=== PATIENT | female | born 1975 | race Two or more races ===

== ENCOUNTER 2016-10-21 02:51 | Emergency (ER) | payer MEDICAID ==
[~2016-10-21] VITALS: Ht 170.2 cm; Wt 64.0 kg
[~2016-10-21 02:51] MED LIST: HYDR-3498 PO; MAG-19 PO; NITR-58 PO; OMEP20CA9 PO
[2016-10-21 02:53] VITALS: Ht 170.2 cm; Wt 64.0 kg
[2016-10-21] MEDS ORDERED: LIDOCAINE/MYLANTA 40 ML BTL PO STA (03:03)
[2016-10-21] MEDS ORDERED: morphine 4 MG/ML VIAL IV STA (03:03)
[2016-10-21] MEDS ORDERED: ONDANSETRON 4 MG INJ IV STA (03:03)
[2016-10-21] MEDS ORDERED: FAMOTIDINE 20 MG INJ IV STA (03:03)
[2016-10-21] MEDS ORDERED: SOD CHLORIDE 0.9% 500 ML IV STA (03:03)
--- NOTE | 2016-10-21 03:46 | RADRPT ---
PROCEDURE: XR Chest. CLINICAL INDICATION: Shortness of breath. TECHNIQUE: AP Portable chest. COMPARISON: No pertinent prior examinations were submitted for comparison. FINDINGS: The cardiomediastinal silhouette is normal. The lungs are clear. The osseous structures are unrema rkable. IMPRESSION: No acute findings. RPTAT: HIKT .Jc Acevedo MD, MD Date Time Electronically viewed and signed by .Jc Acevedo MD, MD on 10/21/2016 03:46 .T/
[2016-10-21 04:24] LABS: ADD SCAN DIFF NO
[2016-10-21 04:36] LABS: BASOPHILS % 0.7 % (0.0-2.0); EOSINOPHILS # 0.1 10^3/ul (0.0-0.5); EOSINOPHILS % 2.3 % (0.0-7.0); HEMATOCRIT 36.5 % (37.0-47.0); HEMOGLOBIN 11.7 g/dl (12.0-16.0); LYMPHOCYTES # 1.6 10^3/ul (0.8-2.9); LYMPHOCYTES % 26.5 % (15.0-51.0); MEAN CORPUSCULAR HEMOGLOBIN 29.8 pg (29.0-33.0); MEAN CORPUSCULAR HGB CONC 32.1 g/dl (32.0-37.0); MEAN CORPUSCULAR VOLUME 92.9 fl (82.0-101.0); MEAN PLATELET VOLUME 12.3 fl (7.4-10.4); MONOCYTE # 0.5 10^3/ul (0.3-0.9); MONOCYTES % 7.4 % (0.0-11.0); NEUTROPHIL # 3.8 10^3/ul (1.6-7.5); NEUTROPHILS % 62.9 % (39.0-77.0); PLATELET COUNT 181 10^3/UL (140-415); RED BLOOD COUNT 3.93 10^6/ul (4.20-5.40); RED CELL DISTRIBUTION WIDTH 12.6 % (11.5-14.5); WHITE BLOOD COUNT 6.1 10^3/ul (4.8-10.8)
[2016-10-21 04:38] LABS: ADD UMIC YES; URINE BILIRUBIN (Dip) NEGATIVE (NEGATIVE); URINE BLOOD (Dip) NEGATIVE (NEGATIVE); URINE COLOR LT. YELLOW (YELLOW); URINE GLUCOSE (Dip) NEGATIVE (NEGATIVE); URINE KETONES (Dip) NEGATIVE (NEGATIVE); URINE LEUKOCYTE ESTERASE (Dip) 2+ (NEGATIVE); URINE NITRITE (Dip) NEGATIVE (NEGATIVE); URINE TOTAL PROTEIN (Dip) NEGATIVE (NEGATIVE); URINE UROBILINOGEN (Dip) 0.2 E.U./dL (0.1-1.0)
[2016-10-21 04:39] LABS: ALBUMIN 3.8 g/dl (3.3-4.9); CHLORIDE 107 mmol/L (97-110); POTASSIUM 3.7 mmol/L (3.5-5.1); SODIUM 145 mmol/L (135-144)
[2016-10-21 04:41] LABS: CREATININE 0.68 mg/dl (0.44-1.00)
[2016-10-21 04:42] LABS: ALANINE AMINOTRANSFERASE 29 IU/L (13-69); ALBUMIN/GLOBULIN RATIO 1.31; ALKALINE PHOSPHATASE 63 IU/L (42-121); ANION GAP 15 (8-16); ASPARTATE AMINO TRANSFERASE 30 IU/L (15-46); BILIRUBIN,INDIRECT 0.1 mg/dl (0-1.1); BILIRUBIN,TOTAL 0.1 mg/dl (0.2-1.3); BLOOD UREA NITROGEN 16 mg/dl (7-20); CALCIUM 8.7 mg/dl (8.4-10.2); CARBON DIOXIDE 27 mmol/L (21-31); GLUCOSE 97 mg/dl (70-220); TOTAL PROTEIN 6.7 g/dl (6.1-8.1)
[2016-10-21 04:53] LABS: SQUAMOUS EPITHELIAL CELL,UR FEW; URINE RBCS NONE SEEN /HPF (0)
[2016-10-21 04:54] LABS: BACTERIA,URINE OCCASIONAL
[2016-10-21 04:55] LABS: TROPONIN-I < 0.012 ng/ml (0.00-0.12)
[2016-10-21 05:11] VITALS: BP 108/51; PULSE 64; RESP 16
--- NOTE | 2016-10-21 05:12 | ERD ---
ER Documentation Chief Complaint Date/Time DATE: 10/21/16 TIME: 05:11 Chief Complaint Upper abd pain and "heart pain" per pt HPI This is a 41 female with epigastric abdominal pain that radiates up her chest for the past 2-3 days. She did pain is burning in sensation. No fevers no chills. Pain is mild to moderate. Mild nausea. No vomiting. No diaphoresis. No shortness of breath. No other current complaints. ROS All systems reviewed and are negative except as per history of present illness. Medications Home Meds Active Scripts Omeprazole* (Prilosec*) 20 Mg Capsule.dr, 20 MG PO DAILY, #30 CAP Prov:DIAMOND VU [employer]ICER 03/19/15 Magaldrate/Simethicone* (Mylanta*) 355 Ml Susp, 30 ML PO QID Y for GASTROINTESTINAL UPSET, #1 BOTTLE Prov:DIAMOND VU NP 03/19/15 Nitrofurantoin Monohyd Macrocr* (Macrobid*) 100 Mg Capsr, 100 MG PO BID, #7 CAP Prov:DIAMOND VU [employer]IEF SAF[employer]Y OFFICER 03/19/15 Hydrocodone Bit-Acetaminophen* ([place]*) 5-325 Mg Tab, 1 TAB PO Q4H Y for SEVERE PAIN LEVEL 7-10, #30 TAB Prov:DIAMOND VU [employer]IEF SAF[employer] OFFICER 03/19/15 Allergies Allergies: Coded Allergies: No Known Drug Allergy (Verified Allergy, Mild, 03/18/15) PMhx/Soc Medical and Surgical Hx: pt denies Medical Hx, pt denies Surgical Hx History of Surgery: No Anesthesia Reaction: No Hx Neurological Disorder: No Hx Respiratory Disorders: No Hx Cardiac Disorders: No Hx Psychiatric Problems: No Hx Miscellaneous Medical Probl: No Hx Alcohol Use: No Hx Substance Use: No Hx Tobacco Use: No Smoking Status: Never smoker Physical Exam Vitals Vital Signs Date Time Temp Pulse Resp B/P Pulse Ox O2 Delivery O2 Flow Rate FiO2 10/21/16 02:53 98.9 71 16 123/60 99 Physical Exam Const: [] Head: Atraumatic Eyes: Normal Conjunctiva ENT: Normal External Ears, Nose and Mouth. Neck: Full range of motion..~ No meningismus. Resp: Clear to auscultation bilaterally Cardio: Regular rate and rhythm, no murmurs Abd: Soft, non tender, non distended. Normal bowel sounds Skin: No petechiae or rashes Back: No midline or flank tenderness Ext: No cyanosis, or edema Neur: Awake and alert Psych: Normal Mood and Affect Result Diagram: 10/21/16 0330 10/21/16 0330 Results 24 hrs Laboratory Tests Test 10/21/16 03:30 10/21/16 04:00 White Blood Count 6.110^3/ul Red Blood Count 3.9310^6/ul Hemoglobin 11.7g/dl Hematocrit 36.5% Mean Corpuscular Volume 92.9fl Mean Corpuscular Hemoglobin 29.8pg Mean Corpuscular Hemoglobin Concent 32.1g/dl Red Cell Distribution Width 12.6% Platelet Count 52538^3/UL Mean Platelet Volume 12.3fl Neutrophils % 62.9% Lymphocytes % 26.5% Monocytes % 7.4% Eosinophils % 2.3% Basophils % 0.7% Nucleated Red Blood Cells % 0.0/100WBC Neutrophils # 3.810^3/ul Lymphocytes # 1.610^3/ul Monocytes # 0.510^3/ul Eosinophils # 0.110^3/ul Basophils # 0.010^3/ul Nucleated Red Blood Cells # 0.010^3/ul Sodium Level 145mmol/L Potassium Level 3.7mmol/L Chloride Level 107mmol/L Carbon Dioxide Level 27mmol/L Anion Gap 15 Blood Urea Nitrogen 16mg/dl Creatinine 0.68mg/dl Glucose Level 97mg/dl Calcium Level 8.7mg/dl Total Bilirubin 0.1mg/dl Direct Bilirubin 0.00mg/dl Indirect Bilirubin 0.1mg/dl Aspartate Amino Transf (AST/SGOT) 30IU/L Alanine Aminotransferase (ALT/SGPT) 29IU/L Alkaline Phosphatase 63IU/L Troponin I < 0.012ng/ml Total Protein 6.7g/dl Albumin 3.8g/dl Globulin 2.90g/dl Albumin/Globulin Ratio 1.31 Lipase 277U/L Urine Color LT. YELLOW Urine Clarity SLIGHTLY CLOUDY Urine pH 7.0 Urine Specific [place] 1.015 Urine Ketones NEGATIVE Urine Nitrite NEGATIVE Urine Bilirubin NEGATIVE Urine Urobilinogen 0.2 E.U./dL Urine Leukocyte Esterase 2+ Urine Microscopic RBC NONE SEEN/HPF Urine Microscopic WBC 2-5/HPF Urine Squamous Epithelial Cells FEW Urine Amorphous Urates MANY Urine Bacteria OCCASIONAL Urine Hemoglobin NEGATIVE Urine Glucose NEGATIVE% Urine Total Protein NEGATIVE Current Medications Medications (Trade) Dose Ordered Sig/Chano Route PRN Reason Start Time Stop Time Status Last Admin Dose Admin Sodium Chloride (NS) 500 ml @ 500 mls/hr Q1H STAT IV 10/21/16 03:03 10/21/16 04:02 DC 10/21/16 03:46 Morphine Sulfate (morphine) 4 mg ONCE STAT IV 10/21/16 03:03 10/21/16 03:05 DC 10/21/16 03:45 Ondansetron HCl (Zofran Inj) 4 mg ONCE STAT IV 10/21/16 03:03 10/21/16 03:05 DC 10/21/16 03:45 Famotidine (Pepcid Iv) 20 mg ONCE STAT IV 10/21/16 03:03 10/21/16 03:05 DC 10/21/16 03:45 Miscellaneous Medication (Gi Cocktail (2)) 40 ml ONCE STAT PO 10/21/16 03:03 10/21/16 03:05 DC 10/21/16 03:44 Procedures/MDM EKG: Rate/Rhythm: [Normal Sinus Rhythm] QRS, ST, T-waves: [No changes consistent w/ acute ischemia] Impression: [No evidence of ischemia or arrhythmia] Chest X-ray 1V Interpreted by me: Soft Tissue: No acute abnormalities Bones: No acute abnormalities Mediastinum/Cardiac Silhouette/Lungs: [No acute abnormalities] Medical decision making: This very pleasant patient comes in essentially for gastritic-like symptoms. At this point clinically stable for outpatient management. Patient be discharged home. Departure Diagnosis: Primary Impression: Gastritis Gastritis type: unspecified gastritis Chronicity: unspecified Gastritis bleeding: without bleeding Qualified Code: K29.70 - Gastritis without bleeding, unspecified chronicity, unspecified gastritis type Condition: Stable RUBEN MCGRATHKarena Oct 21, 2016 05:12
[2016-10-21] MEDS ORDERED: SUCR1TAB56 PO (05:13)
== END 2016-10-21 05:40 | disposition home or self-care (01) ==
LOC: E/R 02:51
DX: K29.70 Gastritis, unspecified, without bleeding (principal); R11.0 Nausea
CPT/HCPCS: 36415; 71010; 80053; 81001; 83690; 84484; 85025; 93005; 96374; 96375; J2270; J2405; J7040; Z7502; Z7610; 81003

== ENCOUNTER 2017-03-06 03:45 | Emergency (ER) | payer MEDICAID ==
[~2017-03-06] VITALS: Ht 162.6 cm; Wt 62.0 kg
[~2017-03-06 03:45] MED LIST changes: +SUCR1TAB56 PO
[2017-03-06 03:49] VITALS: Ht 162.6 cm; Wt 62.0 kg
[2017-03-06] MEDS ORDERED: SOD CHLORIDE 0.9% 1,000 ML IV STA (04:31)
[2017-03-06] MEDS ORDERED: ONDANSETRON 4 MG INJ IV STA (04:31)
[2017-03-06] MEDS ORDERED: morphine 4 MG/ML VIAL IV STA (04:31)
[2017-03-06 04:54] LABS: ADD UMIC YES; BASOPHILS % 0.7 % (0.0-2.0); EOSINOPHILS # 0.2 10^3/ul (0.0-0.5); EOSINOPHILS % 2.7 % (0.0-7.0); HEMATOCRIT 34.1 % (37.0-47.0); HEMOGLOBIN 11.4 g/dl (12.0-16.0); LYMPHOCYTES # 1.5 10^3/ul (0.8-2.9); LYMPHOCYTES % 26.5 % (15.0-51.0); MEAN CORPUSCULAR HEMOGLOBIN 30.3 pg (29.0-33.0); MEAN CORPUSCULAR HGB CONC 33.4 g/dl (32.0-37.0); MEAN CORPUSCULAR VOLUME 90.7 fl (82.0-101.0); MEAN PLATELET VOLUME 12.2 fl (7.4-10.4); MONOCYTE # 0.4 10^3/ul (0.3-0.9); MONOCYTES % 7.9 % (0.0-11.0); NEUTROPHIL # 3.4 10^3/ul (1.6-7.5); PLATELET COUNT 153 10^3/UL (140-415); RED BLOOD COUNT 3.76 10^6/ul (4.20-5.40); RED CELL DISTRIBUTION WIDTH 12.6 % (11.5-14.5); UR ASCORBIC ACID NEGATIVE (NEGATIVE); UR BILIRUBIN (Dip) NEGATIVE (NEGATIVE); UR BLOOD (Dip) 3+ mg/dL (NEGATIVE); UR CLARITY CLEAR (CLEAR); UR COLOR COLORLESS (YELLOW); UR GLUCOSE (Dip) NEGATIVE (NEGATIVE); UR KETONES (Dip) NEGATIVE (NEGATIVE); UR LEUKOCYTE ESTERASE (Dip) TRACE Leu/ul (NEGATIVE); UR NITRITE (Dip) NEGATIVE (NEGATIVE); UR RBC 2 /HPF (0-5); UR SPECIFIC GRAVITY (Dip) 1.005 (1.003-1.030); UR TOTAL PROTEIN (Dip) NEGATIVE (NEGATIVE); UR UROBILINOGEN (Dip) NEGATIVE (NEGATIVE); WHITE BLOOD COUNT 5.5 10^3/ul (4.8-10.8)
[2017-03-06 05:10] LABS: ALBUMIN/GLOBULIN RATIO 1.29; CALCIUM 8.6 mg/dl (8.4-10.2); CREATININE 0.59 mg/dl (0.44-1.00); POTASSIUM 3.9 mmol/L (3.5-5.1); TOTAL PROTEIN 7.1 g/dl (6.1-8.1)
[2017-03-06] MEDS ORDERED: KETOROLAC 30 MG INJ IV ONE (05:46)
--- NOTE | 2017-03-06 05:57 | RADRPT ---
PROCEDURE: ULTRASOUND LIMITED ABDOMEN CLINICAL INDICATION: 42-year-old female with abdominal pain. TECHNIQUE: Multiple sonographic of the right upper quadrant of the abdomen were obtained. The imag es were reviewed on a PACS workstation. COMPARISON: Right upper quadrant ultrasound March 19, 2015. FINDINGS: The pancreas is not well visualized secondary to overlying bowel gas. The liver displays normal echogenicity. The liver measures 18.3 cm in length. No evidence of intrah epatic biliary ductal dilatation is seen. The portal and hepatic veins are unremarkable. The gallbladder is distended and contains shadowing mobile stones. The gallbladder wall is thickene d measuring 5.4 mm. There is questionable trace pericholecystic fluid. The common bile duct measures 5.4 mm and is not dilated. The right kidney displays normal echogenicity. The right kidney measures 10.8 cm in length. No calie ctasis or hydronephrosis is seen. No free fluid is seen. IMPRESSION: Cholelithiasis with thickened gallbladder wall and questionable trace pericholecystic fluid. .Daniel Wray MD, MD Date Time Electronically viewed and signed by .Daniel Wray MD, on 03/06/2017 05:57 .M/
[2017-03-06] MEDS ORDERED: HYDR-906 PO (06:08)
[2017-03-06] MEDS ORDERED: NAPR-688 PO (06:08)
[2017-03-06] MEDS ORDERED: ONDA4TAB14 PO (06:08)
--- NOTE | 2017-03-06 06:11 | RADRPT ---
PROCEDURE: CT ABDOMEN/PELVIS WITHOUT CONTRAST CLINICAL INDICATION: 42-year-old female with abdominal pain. TECHNIQUE: The study was performed utilizing a [employer] VCT 64-slice CT scanner. Direct axia l sections were obtained through the abdomen and pelvis without the use of intravenous contrast mate rial. Sagittal and coronal reformations were obtained. One or more of the following dose reduction t echniques were utilized: automated exposure control, adjustment of the mA and/or kV according to pat ient's size or use of iterative reconstruction technique. The images [facility] CTD/vol = 6.6 mGy; Total Exam DLP = 362 point a mGy-cm. COMPARISON: Right upper quadrant ultrasound March 06, 2017. FINDINGS: The lung bases are unremarkable. There is no evidence for significant pleural effusion. The liver has a normal size and contour without focal areas of abnormal density. No intrahepatic nor extrahepa tic biliary ductal dilatation is seen. The gallbladder contains multiple gallstones with a thickened gallbladder wall measuring up to 5.3 mm with trace pericholecystic fluid. The pancreas is without a reas of abnormal attenuation. The spleen is identified and has a normal size without abnormal densi ty. The adrenal glands are unremarkable. The kidneys are without abnormal density. No hydroureterone phrosis nor nephroureterolithiasis is evident. The urinary bladder contains urine. There is retained stool identified within the ascending and transverse colon without evidence for gross bowel obstruc tion. The appendix is visualized and is without abnormal thickening or surrounding inflammatory christofer ction. The uterus is anteflexed. There is no significant free fluid. The aortoiliac vessels are without aneurysmal dilatation. The osseous structures are intact. IMPRESSION: 1. Cholelithiasis with thickened gallbladder wall and trace pericholecystic fluid. 2. No CT evidence for obstructive uropathy or renal calculi. 3. Retained stool within the proximal colon without obstruction. 4. No CT evidence for appendicitis. .Daniel Wray MD, MD Date Time Electronically viewed and signed by .Daniel Wray MD, MD on 03/06/2017 06:11 .M/
--- NOTE | 2017-03-06 06:12 | ERD ---
ER Documentation Chief Complaint Date/Time DATE: 03/06/17 TIME: 06:09 Chief Complaint RUQ abd pain x 2 days HPI This 42-year-old female comes in for intermittent right upper quadrant pain for 2 days. She actually indicates the pain is being in her lower right chest that radiates to her back. Denies any fevers or chills. Does have known gallstones. Denies any shortness of breath but states that the pain is sometimes worse when she takes a deep breath. ROS All systems reviewed and are negative except as per history of present illness. Medications Home Meds Active Scripts Ondansetron (Ondansetron Odt) 4 Mg Tab.rapdis, 4 MG PO Q6H Y for NAUSEA AND/OR VOMITING, #10 TAB Prov:PAT NOONAN DO 03/06/17 Naproxen* (Naproxen*) 500 Mg Tablet, 500 MG PO BID Y for PAIN, #20 TAB Prov:PAT NOONAN DO 03/06/17 Hydrocodone/Acetaminophen ([place] 5-325 Tablet) 1 Each Tablet, 1 EACH PO Q6, #10 TAB Prov:PAT NOONAN DO 03/06/17 Discontinued Scripts Sucralfate* (Carafate*) 1 Gm Tab, 1 GM PO QID, #30 TAB Prov:RUBEN MCGRATH 10/21/16 Omeprazole* (Prilosec*) 20 Mg Capsule.dr, 20 MG PO DAILY, #30 CAP Prov:DIAMOND VU NP 03/19/15 Magaldrate/Simethicone* (Mylanta*) 355 Ml Susp, 30 ML PO QID Y for GASTROINTESTINAL UPSET, #1 BOTTLE Prov:DIAMOND VU NP 03/19/15 Nitrofurantoin Monohyd Macrocr* (Macrobid*) 100 Mg Capsr, 100 MG PO BID, #7 CAP Prov:DIAMOND VU NP 03/19/15 Hydrocodone Bit-Acetaminophen* ([place]*) 5-325 Mg Tab, 1 TAB PO Q4H Y for SEVERE PAIN LEVEL 7-10, #30 TAB Prov:DIAMOND VU NP 03/19/15 Allergies Allergies: Coded Allergies: No Known Drug Allergy (Verified Allergy, Mild, 03/18/15) PMhx/Soc Medical and Surgical Hx: pt denies Medical Hx, pt denies Surgical Hx History of Surgery: No Anesthesia Reaction: No Hx Neurological Disorder: No Hx Respiratory Disorders: No Hx Cardiac Disorders: No Hx Psychiatric Problems: No Hx Miscellaneous Medical Probl: No Hx Alcohol Use: No Hx Substance Use: No Hx Tobacco Use: No Smoking Status: Never smoker Physical Exam Vitals Vital Signs Date Time Temp Pulse Resp B/P Pulse Ox O2 Delivery O2 Flow Rate FiO2 03/06/17 04:16 98.3 67 20 114/58 100 Room Air 03/06/17 03:49 98.3 69 20 115/68 99 Physical Exam Const: [] Mild distress Head: Atraumatic Eyes: Normal Conjunctiva ENT: Normal External Ears, Nose and Mouth. Neck: Full range of motion..~ No meningismus. Resp: Clear to auscultation bilaterally Cardio: Regular rate and rhythm, no murmurs Abd: Soft, mild tenderness to palpation with deep palpation right upper quadrant on inspiration, no guarding or rebound non distended. Normal bowel sounds Skin: No petechiae or rashes Back: No midline or flank tenderness Ext: No cyanosis, or edema Neur: Awake and alert and oriented 3, no focal deficit Psych: Normal Mood and Affect Result Diagram: 03/06/1742903/06/17 043 Results 24 hrs Laboratory Tests Test 03/06/17 04:30 White Blood Count 5.510^3/ul Red Blood Count 3.7610^6/ul Hemoglobin 11.4g/dl Hematocrit 34.1% Mean Corpuscular Volume 90.7fl Mean Corpuscular Hemoglobin 30.3pg Mean Corpuscular Hemoglobin Concent 33.4g/dl Red Cell Distribution Width 12.6% Platelet Count 28044^3/UL Mean Platelet Volume 12.2fl Neutrophils % 62.0% Lymphocytes % 26.5% Monocytes % 7.9% Eosinophils % 2.7% Basophils % 0.7% Nucleated Red Blood Cells % 0.0/100WBC Neutrophils # 3.410^3/ul Lymphocytes # 1.510^3/ul Monocytes # 0.410^3/ul Eosinophils # 0.210^3/ul Basophils # 0.010^3/ul Nucleated Red Blood Cells # 0.010^3/ul Urine Color COLORLESS Urine Clarity CLEAR Urine pH 7.0 Urine Specific [place] 1.005 Urine Ketones NEGATIVEmg/dL Urine Nitrite NEGATIVEmg/dL Urine Bilirubin NEGATIVEmg/dL Urine Urobilinogen NEGATIVEmg/dL Urine Leukocyte Esterase TRACELeu/ul Urine Microscopic RBC 2/HPF Urine Microscopic WBC 3/HPF Urine Hemoglobin 3+mg/dL Urine Glucose NEGATIVEmg/dL Urine Total Protein NEGATIVEmg/dl Sodium Level 145mmol/L Potassium Level 3.9mmol/L Chloride Level 106mmol/L Carbon Dioxide Level 26mmol/L Anion Gap 17 Blood Urea Nitrogen 13mg/dl Creatinine 0.59mg/dl Glucose Level 92mg/dl Calcium Level 8.6mg/dl Total Bilirubin 0.0mg/dl Direct Bilirubin 0.00mg/dl Indirect Bilirubin 0.0mg/dl Aspartate Amino Transf (AST/SGOT) 20IU/L Alanine Aminotransferase (ALT/SGPT) 29IU/L Alkaline Phosphatase 58IU/L Troponin I < 0.012ng/ml Total Protein 7.1g/dl Albumin 4.0g/dl Globulin 3.10g/dl Albumin/Globulin Ratio 1.29 Lipase 169U/L Current Medications Medications (Trade) Dose Ordered Sig/[place] Route PRN Reason Start Time Stop Time Status Last Admin Dose Admin Sodium Chloride (NS) 1,000 ml @ 1,000 mls/hr Q1H STAT IV 03/06/17 04:31 03/06/17 05:30 DC 03/06/17 04:49 Morphine Sulfate (morphine) 4 mg ONCE STAT IV 03/06/17 04:31 03/06/17 04:32 DC Ondansetron HCl (Zofran Inj) 4 mg ONCE STAT IV 03/06/17 04:31 03/06/17 04:32 DC 03/06/17 04:49 Ketorolac Tromethamine (Toradol) 30 mg ONCE ONCE IV 03/06/17 05:46 03/06/17 05:47 DC Procedures/MDM Biliary colic. Patient also indicated the pain was actually in her chest cavity area however I believe this is just referred pain from her gallbladder. EKG was performed which was negative for any ischemia. Troponin is also negative after 2 days with the pain. Does have thickened gallbladder wall on CAT scan however patient's condition was so mild that she declined pain medication both morphine and Toradol. She was given Zofran and normal saline. She is now a stay in the hospital. She has no evidence of dilated duct or elevated bilirubin or increased liver function test. I am going to discharge her with instructions to follow-up with primary care doctor and obtain a surgical consult as well as strict return precautions to the ER. Gallbladder ultrasound interpretation: Multiple gallstones with thickened, no dilated bile duct. I do not see pericystic colic fluid CT abdomen pelvis interpretation: I see no lung parenchymal abnormalities. Multiple gallstones with thickened gallbladder wall. No bowel obstruction, no abnormal fat stranding, no fractures. EKG interpretation: An sinus bradycardia rate of 56, right axis deviation, no ST or T-wave changes concerning for acute ischemia. Normal intervals. Borderline EKG . Departure Diagnosis: Primary Impression: Chest pain Additional Impression: Biliary colic Condition: Stable Patient Instructions: Chest Pain, Uncertain Cause, Biliary Colic With Gallstone (Confirmed) Additional Instructions: Llame al doctor FRED y franko uma AMANDO PARA DENTRO DE 2-3 LONGO. Consigue un referral para un general surgeon. Dgale a la secretaria que nosotros le instruimos hacer esta amando.Avise o llame si almodovar condicin se empeora antes de la amando. Regresa aqui si peor o no mejor. PAT NOONAN DO Mar 06, 2017 06:12
[2017-03-06 06:24] VITALS: BP 109/52; PULSE 64; RESP 20; TEMP 98.3
== END 2017-03-06 06:27 | disposition home or self-care (01) ==
LOC: E/R 03:45
DX: R07.9 Chest pain, unspecified (principal); K80.50 Calculus of bile duct without cholangitis or cholecystitis without obstruction
CPT/HCPCS: 74176; 76705; 80053; 81001; 83690; 84484; 85025; J2405; J7030; 36415; 93005; 96374; 96375; J2270

== ENCOUNTER 2017-04-30 22:28 | Emergency (ER) | payer MEDICAID ==
[~2017-04-30] VITALS: Ht 167.6 cm; Wt 60.0 kg
[2017-04-30 22:31] VITALS: Ht 167.6 cm; Wt 60.0 kg
--- NOTE | 2017-04-30 23:27 | ERA ---
ER Documentation Chief Complaint Date/Time DATE: 04/30/17 TIME: 23:26 Chief Complaint upper abd pain radaiting to back x 2 days HPI The patient is a 42-year-old female, presenting to the ER because of acute on chronic epigastric and upper quadrant abdominal pain. The pain is worse for the last 2 days, worse with eating. She denies fever, chills, neck pain, chest pain , vomiting, dysuria, diarrhea, complains of constipation. She had similar symptoms on March 06, 2017 where she was seen in the ER and had a CT scan of the abdomen the pelvic and the ultrasound of the abdomen both show cholelithiasis. She has not been seen by her physician yet. She does not smoke nor drink Past medical history: Cholelithiasis Past surgical history: None ROS All systems reviewed and are negative except as per history of present illness. Medications Home Meds Active Scripts Hydrocodone/Acetaminophen ([place] 5-325 Tablet) 1 Each Tablet, 1 TAB PO Q6H Y for PAIN, #7 TAB Prov:AAKASH WALKER MD 05/01/17 Allergies Allergies: Coded Allergies: No Known Drug Allergy (Unverified Allergy, Mild, 03/06/17) PMhx/Soc History of Surgery: No Anesthesia Reaction: No Hx Neurological Disorder: No Hx Respiratory Disorders: No Hx Cardiac Disorders: No Hx Psychiatric Problems: No Hx Miscellaneous Medical Probl: No Hx Alcohol Use: No Hx Substance Use: No Hx Tobacco Use: No Smoking Status: Never smoker Physical Exam Vitals Vital Signs Date Time Temp Pulse Resp B/P Pulse Ox O2 Delivery O2 Flow Rate FiO2 04/30/17 22:31 98.2 80 20 109/55 98 Physical Exam Const: No acute distress. Head: Atraumatic. Eyes: Normal Conjunctiva. ENT: Normal External Ears, Nose and Mouth. Neck: Full range of motion. No meningismus. Resp: Clear to auscultation bilaterally. Cardio: Regular rate and rhythm. Abd: Soft, non distended, normal bowel sounds, Mild to moderate epigastric and right upper quadrant tenderness, no right lower quadrant, rigidity, rebound, CVA tenderness Skin: No petechiae or rashes. Back: No midline or flank tenderness. Ext: No cyanosis, or edema. Neur: Awake and alert. No focal deficit Psych: Normal Mood and Affect. Result Diagram: 04/30/17 7506 04/30/17 2355 Results 24 hrs Laboratory Tests Test 04/30/17 23:53 04/30/17 23:55 Bedside Urine pH (LAB) 6.5 Bedside Urine Protein (LAB) Negative Bedside Urine Glucose (UA) Negative Bedside Urine Ketones (LAB) Negative Bedside Urine Blood 2+ Bedside Urine Nitrite (LAB) Negative Bedside Urine Leukocyte Esterase (L Negative White Blood Count 5.310^3/ul Red Blood Count 3.8810^6/ul Hemoglobin 11.8g/dl Hematocrit 36.0% Mean Corpuscular Volume 92.8fl Mean Corpuscular Hemoglobin 30.4pg Mean Corpuscular Hemoglobin Concent 32.8g/dl Red Cell Distribution Width 12.8% Platelet Count 21214^3/UL Mean Platelet Volume 11.9fl Neutrophils % 68.6% Lymphocytes % 22.9% Monocytes % 6.9% Eosinophils % 0.8% Basophils % 0.6% Nucleated Red Blood Cells % 0.0/100WBC Neutrophils # 3.710^3/ul Lymphocytes # 1.210^3/ul Monocytes # 0.410^3/ul Eosinophils # 0.010^3/ul Basophils # 0.010^3/ul Nucleated Red Blood Cells # 0.010^3/ul Sodium Level 140mmol/L Potassium Level 3.9mmol/L Chloride Level 105mmol/L Carbon Dioxide Level 28mmol/L Anion Gap 11 Blood Urea Nitrogen 14mg/dl Creatinine 0.63mg/dl Glucose Level 92mg/dl Calcium Level 9.5mg/dl Total Bilirubin 0.2mg/dl Direct Bilirubin 0.00mg/dl Indirect Bilirubin 0.2mg/dl Aspartate Amino Transf (AST/SGOT) 66IU/L Alanine Aminotransferase (ALT/SGPT) 59IU/L Alkaline Phosphatase 60IU/L Total Protein 7.7g/dl Albumin 4.1g/dl Globulin 3.60g/dl Albumin/Globulin Ratio 1.13 Lipase 150U/L Current Medications Medications (Trade) Dose Ordered Sig/[place] Route PRN Reason Start Time Stop Time Status Last Admin Dose Admin Sodium Chloride (NS) 1,000 ml @ 1,000 mls/hr Q1H STAT IV 04/30/17 23:32 05/01/17 00:31 DC 05/01/17 00:01 Morphine Sulfate (morphine) 2 mg ONCE STAT IV 04/30/17 23:32 04/30/17 23:34 DC 05/01/17 00:00 Ondansetron HCl 4 mg 4 mg ONCE STAT IV 04/30/17 23:32 04/30/17 23:34 DC 05/01/17 00:00 Sodium Chloride (NS) 1,000 ml @ 1,000 mls/hr Q1H ONCE IV 05/01/17 00:00 05/01/17 00:59 DC 05/01/17 00:07 Procedures/MDM MEDICAL MAKING DECISION: The patient is a 42-year-old female, presenting with acute biliary colic. She was treated with 2 L normal saline for clinical dehydration, morphine 2 mg IV for pain, Zofran formulary for nausea with good response The differential diagnoses considered include but are not limited to cholelithiasis, cholecystitis, cystitis, pancreatitis, hepatitis, gastritis, peptic ulcer disease, gastric ulcer, appendicitis, diverticulitis, cholangitis, choledocholithiasis, partial small bowel obstruction. Departure Diagnosis: Primary Impression: Biliary colic Additional Impression: Anemia Condition: Good Comments She was discharged with Ideal I discussed the findings with the patient. I advised the patient to follow-up with the primary physician in about 1-2 days for reevaluation and referral to general surgery for elective cholecystectomy, sooner if needed and return if any concern. AAKASH WALKER MD Apr 30, 2017 23:27
[2017-04-30] MEDS ORDERED: SOD CHLORIDE 0.9% 1,000 ML IV STA (23:32)
[2017-04-30] MEDS ORDERED: ONDANSETRON 4 MG INJ IV STA (23:32)
[2017-04-30] MEDS ORDERED: morphine 2 MG INJ IV STA (23:32)
[2017-04-30 23:45] LABS: URINE BLOOD (Dip) POC 2+ (NEGATIVE)
[2017-05-01] MEDS ORDERED: SOD CHLORIDE 0.9% 1,000 ML IV ONE
[2017-05-01 00:31] LABS: BASOPHILS % 0.6 % (0.0-2.0); EOSINOPHILS % 0.8 % (0.0-7.0); HEMOGLOBIN 11.8 g/dl (12.0-16.0); LYMPHOCYTES # 1.2 10^3/ul (0.8-2.9); LYMPHOCYTES % 22.9 % (15.0-51.0); MEAN CORPUSCULAR HEMOGLOBIN 30.4 pg (29.0-33.0); MEAN CORPUSCULAR HGB CONC 32.8 g/dl (32.0-37.0); MEAN CORPUSCULAR VOLUME 92.8 fl (82.0-101.0); MEAN PLATELET VOLUME 11.9 fl (7.4-10.4); MONOCYTE # 0.4 10^3/ul (0.3-0.9); MONOCYTES % 6.9 % (0.0-11.0); NEUTROPHIL # 3.7 10^3/ul (1.6-7.5); NEUTROPHILS % 68.6 % (39.0-77.0); PLATELET COUNT 192 10^3/UL (140-415); RED BLOOD COUNT 3.88 10^6/ul (4.20-5.40); RED CELL DISTRIBUTION WIDTH 12.8 % (11.5-14.5); WHITE BLOOD COUNT 5.3 10^3/ul (4.8-10.8)
[2017-05-01 00:59] LABS: ALBUMIN 4.1 g/dl (3.3-4.9); ALBUMIN/GLOBULIN RATIO 1.13; BILIRUBIN,INDIRECT 0.2 mg/dl (0-1.1); BILIRUBIN,TOTAL 0.2 mg/dl (0.2-1.3); CALCIUM 9.5 mg/dl (8.4-10.2); CREATININE 0.63 mg/dl (0.44-1.00); POTASSIUM 3.9 mmol/L (3.5-5.1); TOTAL PROTEIN 7.7 g/dl (6.1-8.1)
[2017-05-01] MEDS ORDERED: HYDR-906 PO (01:33)
[2017-05-01 01:42] VITALS: BP 111/55; PULSE 62; RESP 16; TEMP 97.7
== END 2017-05-01 01:43 | disposition home or self-care (01) ==
LOC: FTE 22:28
DX: K80.50 Calculus of bile duct without cholangitis or cholecystitis without obstruction (principal); D64.9 Anemia, unspecified
CPT/HCPCS: 36415; 80053; 81003; 83690; 85025; 96374; 96375; J2270; J2405; J7030; Z7502

== ENCOUNTER 2017-05-03 18:51 | Emergency (ER) | payer MEDICAID ==
[~2017-05-03] VITALS: Ht 160 cm; Wt 59.0 kg
[~2017-05-03 18:51] MED LIST changes: -HYDR-3498 PO; +HYDR-906 PO; -MAG-19 PO; -NITR-58 PO; -OMEP20CA9 PO; -SUCR1TAB56 PO
[2017-05-03 19:38] VITALS: Ht 160 cm; Wt 59.0 kg
[2017-05-03] MEDS ORDERED: ONDANSETRON (ODT) 4 MG TAB ODT STA (22:11)
[2017-05-03] MEDS ORDERED: NAPROXEN 500 MG TAB PO STA (22:12)
--- NOTE | 2017-05-03 22:15 | ERD ---
ER Documentation Chief Complaint Date/Time DATE: 05/03/17 TIME: 22:14 Chief Complaint RUQ abd pain since Wednesday; nausea only HPI 42-year-old female with history of cholelithiasis presents to the emergency department complaining of right upper quadrant 8 out of 10 abdominal pain since Wednesday. Patient states the pain is worse with food. She admits to having nausea. She denies any vomiting. Patient states that she has tried Leon without any relief. Denies fever ROS All systems reviewed and are negative except as per history of present illness. Medications Home Meds Active Scripts Ondansetron (Ondansetron Odt) 4 Mg Tab.rapdis, 4 MG PO Q6H Y for NAUSEA AND/OR VOMITING, #10 TAB Prov:GERALD HARTMAN PA-C 05/03/17 Tramadol HCl (Tramadol HCl) 50 Mg Tablet, 50 MG PO Q4 Y for PAIN, #20 TAB Prov:GERALD HARTMAN PA-C 05/03/17 Hydrocodone/Acetaminophen (Leon 5-325 Tablet) 1 Each Tablet, 1 TAB PO Q6H Y for PAIN, #7 TAB Prov:AAKASH WALKER MD 05/01/17 Allergies Allergies: Coded Allergies: No Known Drug Allergy (Unverified Allergy, Mild, 03/06/17) PMhx/Soc Medical and Surgical Hx: pt denies Medical Hx, pt denies Surgical Hx History of Surgery: No Anesthesia Reaction: No Hx Neurological Disorder: No Hx Respiratory Disorders: No Hx Cardiac Disorders: No Hx Psychiatric Problems: No Hx Miscellaneous Medical Probl: No Hx Alcohol Use: No Hx Substance Use: No Hx Tobacco Use: No Smoking Status: Never smoker Physical Exam Vitals Vital Signs Date Time Temp Pulse Resp B/P Pulse Ox O2 Delivery O2 Flow Rate FiO2 05/03/17 23:55 97.6 66 16 111/60 97 Room Air 05/03/17 19:38 98.4 63 20 111/56 99 Physical Exam GENERAL: well-developed/well-nourished, in no apparent distress, non-toxic appearing HENT: NC/AT, moist mucous membranes EYES: Conjunctiva normal NECK: Supple, no lymphadenopathy PULM: CTA bilaterally, no rales, rhonchi, or wheezing heard CV: Normal S1S2, RRR, good capillary refill GI: Soft, non-distended, tender to palpation RUQ Normal bowel sounds, no masses or organomegaly felt on exam No gross peritonitis, no bruits Negative Rovsing, negative Sinclair, negative McBurney's point, Negative CVAT BACK: No masses EXT: No clubbing, cyanosis, or edema NEURO: Alert and Orientated SKIN: Intact, normal turgor PSYCH: Normal mood and mentation Result Diagram: 05/03/17222405/03/172224 Results 24 hrs Laboratory Tests Test 05/03/17 22:25 White Blood Count 5.810^3/ul Red Blood Count 4.2110^6/ul Hemoglobin 12.4g/dl Hematocrit 39.2% Mean Corpuscular Volume 93.1fl Mean Corpuscular Hemoglobin 29.5pg Mean Corpuscular Hemoglobin Concent 31.6g/dl Red Cell Distribution Width 13.0% Platelet Count 23588^3/UL Mean Platelet Volume 11.9fl Neutrophils % 70.3% Lymphocytes % 22.1% Monocytes % 5.7% Eosinophils % 1.2% Basophils % 0.7% Nucleated Red Blood Cells % 0.0/100WBC Neutrophils # 4.110^3/ul Lymphocytes # 1.310^3/ul Monocytes # 0.310^3/ul Eosinophils # 0.110^3/ul Basophils # 0.010^3/ul Nucleated Red Blood Cells # 0.010^3/ul Sodium Level 142mmol/L Potassium Level 3.8mmol/L Chloride Level 102mmol/L Carbon Dioxide Level 29mmol/L Anion Gap 15 Blood Urea Nitrogen 10mg/dl Creatinine 0.65mg/dl Glucose Level 113mg/dl Calcium Level 9.5mg/dl Total Bilirubin 0.5mg/dl Direct Bilirubin 0.00mg/dl Indirect Bilirubin 0.5mg/dl Aspartate Amino Transf (AST/SGOT) 185IU/L Alanine Aminotransferase (ALT/SGPT) 191IU/L Alkaline Phosphatase 102IU/L Total Protein 8.4g/dl Albumin 4.9g/dl Globulin 3.50g/dl Albumin/Globulin Ratio 1.40 Lipase 69U/L Current Medications Medications (Trade) Dose Ordered Sig/Chano Route PRN Reason Start Time Stop Time Status Last Admin Dose Admin Ondansetron HCl (Zofran Odt) 4 mg ONCE STAT ODT 05/03/17 22:11 05/03/17 22:13 DC 05/03/17 23:01 Naproxen (Naprosyn) 500 mg ONCE STAT PO 05/03/17 22:12 05/03/17 22:13 DC 05/03/17 23:01 Procedures/MDM 42-year-old female presents the emergency departmentPresents emergency department for right upper quadrant abdominal pain and nausea due to cholelithiasis. I doubt patient has sepsis, choledocholithiasis, cholecystitis or cholangitis, pancreatitis or other acute abdomen conditions due to physical examination and diagnostic testing. Patient appears well and nontoxic appearing with stable vital signs Gallbladder US: 1. Gallstones in the gallbladder. No evidence of cholecystitis. 2. Pancreas not visualized. 3. Nonobstructing calculus in the lower right kidney. 4. Otherwise unremarkable study. Diagnostic testing and instructions were given to patient. Pain control and antiemetic prescriptions were provided for outpatient self-care. Discussed with patient to follow-up with primary care for GI referral. Precautions were given to return to the ER for fever, intractable pain, increased vomiting, and other worsening signs and symptoms. Patient expressed agreement and understanding of this plan.] Departure Diagnosis: Primary Impression: Cholelithiasis Condition: Stable GERALD HARTMAN PA-C May 03, 2017 22:15
[2017-05-03] MEDS ORDERED: TRAM50TA2 PO (22:16)
[2017-05-03] MEDS ORDERED: ONDA4TAB14 PO (22:16)
--- NOTE | 2017-05-03 23:00 | RADRPT ---
PROCEDURE: US Abdomen (right upper quadrant). CLINICAL INDICATION: Right upper quadrant abdomen pain. TECHNIQUE: Multiple real-time longitudinal and transverse images of the right upper quadrant of th e abdomen were acquired utilizing a curved array transducer. Images were reviewed on a high-resoluti on PACS workstation. COMPARISON: None FINDINGS: The liver is normal in size and normal in echogenicity. There is no focal hepatic lesion. Color Doppler and pulsed Doppler sonography demonstrate normal a ntegrade flow in the portal vein. Multiple gallstones are present in the gallbladder. There is no gallbladder wall thickening or fluid around the gallbladder. The bile ducts are normal with the common bile duct measuring 2.4 mm in diameter. The pancreas is not visualized due to overlying bowel gas. No free fluid is present. The right kidney measures 9.9 cm. There is normal echogenicity of the right kidney. There is no r ight renal mass or hydronephrosis. There is a nonobstructing 0.7 cm calculus in the lower right kidn ey. IMPRESSION: 1. Gallstones in the gallbladder. No evidence of cholecystitis. 2. Pancreas not visualized. 3. Nonobstructing calculus in the lower right kidney. 4. Otherwise unremarkable study. RPTAT: QQ .Navi Erwin MD, MD Date Time Electronically viewed and signed by .Navi Erwin MD, on 05/03/2017 23:00 .R/
[2017-05-03 23:09] LABS: BASOPHILS % 0.7 % (0.0-2.0); EOSINOPHILS # 0.1 10^3/ul (0.0-0.5); EOSINOPHILS % 1.2 % (0.0-7.0); HEMATOCRIT 39.2 % (37.0-47.0); HEMOGLOBIN 12.4 g/dl (12.0-16.0); LYMPHOCYTES # 1.3 10^3/ul (0.8-2.9); LYMPHOCYTES % 22.1 % (15.0-51.0); MEAN CORPUSCULAR HEMOGLOBIN 29.5 pg (29.0-33.0); MEAN CORPUSCULAR HGB CONC 31.6 g/dl (32.0-37.0); MEAN CORPUSCULAR VOLUME 93.1 fl (82.0-101.0); MEAN PLATELET VOLUME 11.9 fl (7.4-10.4); MONOCYTE # 0.3 10^3/ul (0.3-0.9); MONOCYTES % 5.7 % (0.0-11.0); NEUTROPHIL # 4.1 10^3/ul (1.6-7.5); NEUTROPHILS % 70.3 % (39.0-77.0); PLATELET COUNT 195 10^3/UL (140-415); RED BLOOD COUNT 4.21 10^6/ul (4.20-5.40); WHITE BLOOD COUNT 5.8 10^3/ul (4.8-10.8)
[2017-05-03 23:32] LABS: ALBUMIN 4.9 g/dl (3.3-4.9); ALBUMIN/GLOBULIN RATIO 1.4; BILIRUBIN,INDIRECT 0.5 mg/dl (0-1.1); BILIRUBIN,TOTAL 0.5 mg/dl (0.2-1.3); CALCIUM 9.5 mg/dl (8.4-10.2); CREATININE 0.65 mg/dl (0.44-1.00); POTASSIUM 3.8 mmol/L (3.5-5.1); TOTAL PROTEIN 8.4 g/dl (6.1-8.1)
[2017-05-03 23:55] VITALS: BP 111/60; PULSE 66; RESP 16; TEMP 97.6
== END 2017-05-03 23:55 | disposition home or self-care (01) ==
LOC: FTE 18:51
DX: K80.20 Calculus of gallbladder without cholecystitis without obstruction (principal)
CPT/HCPCS: 36415; 76705; 80053; 83690; 85025; Z7502; Z7610